=== PATIENT | male | born 1940 | race Caucasian/White ===

== ENCOUNTER 2016-09-06 08:26 | Inpatient (IN) | payer MEDICARE ==
[2016-09-03 11:57] LABS: BLOOD UREA NITROGEN 20 mg/dL (7-18)
[2016-09-03 12:01] LABS: ASPARTATE AMINO TRANSFERASE 22 U/L (15-37)
[~2016-09-06] VITALS: Ht 198.1 cm; Wt 141.0 kg
[~2016-09-06 08:26] MED LIST: APIX5TAB PO; BUPIVACAINE/PF-EPI 0.5% 1:200K ONE; CHOL20002 PO; DUTA0.5C PO; FINA1TAB16 PO; GABA300C10 PO; GLUC1500 PO; GLUC1CAP48 PO; HYDR-3240 PO; METO25TA35 PO; METR60GE TP; MINO100T2 PO; NAPR-874 PO; NAPR250T PO; NEOSPORIN OINT, 15GM ONE; ROSU10TA PO; ROSU20TA PO; TAMS-11 PO; THROMBIN 5,000 UNIT VIAL TP ONE; TRAM50TA2 PO; Will bring list DOP; ZOLP10TA PO
[2016-09-06 09:19] VITALS: BP 120/81
[2016-09-06] MEDS ORDERED: FENTANYL PF 250 MCG/5ML ONE (09:22)
[2016-09-06] MEDS ORDERED: KETAMINE 10 MG/ML, 20ML ONE (09:22)
[2016-09-06] MEDS ORDERED: LACTATED RINGERS 1,000 ML IV SCH (09:23)
[2016-09-06] MEDS ORDERED: MIDAZOLAM 1 MG/ML, 2ML ONE (09:23)
[2016-09-06] MEDS ORDERED: Tramadol PO (09:28)
[2016-09-06] MEDS ORDERED: REMIFENTANIL 2 MG ONE (10:01)
[2016-09-06] MEDS ORDERED: PHENYLEPHRINE 10 MG/ML ONE (11:37)
[2016-09-06] MEDS ORDERED: CEFAZOLIN 1,000 MG ONE (11:37)
[2016-09-06] MEDS ORDERED: ROCURONIUM 10 MG/ML ONE (11:37)
[2016-09-06] MEDS ORDERED: PROPOFOL 10 MG/ML, 50ML ONE ×2 (11:37)
[2016-09-06] MEDS ORDERED: ONDANSETRON 2MG/ML, 2ML ONE (11:37)
[2016-09-06] MEDS ORDERED: SUCCINYLCHOLINE 20 MG/ML, 10ML ONE (11:37)
[2016-09-06] MEDS ORDERED: DEXAMETHASONE 4 MG/ML, 1ML ONE (11:37)
[2016-09-06] MEDS ORDERED: SENNA/DOCUSATE TABLET PO PRN (12:00)
[2016-09-06] MEDS ORDERED: PHARMACY MAY ADJ FOR RENAL FX MC PRN (12:00)
[2016-09-06] MEDS ORDERED: DIPHENHYDRAMINE 50 MG/ML, 1ML IVPush PRN (12:00)
[2016-09-06] MEDS ORDERED: BISACODYL 10 MG SUPP PR PRN (12:00)
[2016-09-06] MEDS ORDERED: METRONIDAZOLE GEL 1%, 60GM TP SCH (12:00)
[2016-09-06] MEDS ORDERED: MAGNESIUM HYDROXIDE 8%, 30ML UDC PO PRN (12:00)
[2016-09-06] MEDS ORDERED: ONDANSETRON 2MG/ML, 2ML IVPush PRN (12:00)
[2016-09-06] MEDS: CEFAZOLIN PMX 1GM/50ML 50 ML IVPB SCH ×2 (12:00→19:58)
[2016-09-06] MEDS ORDERED: OXYcodone 5 MG/5 ML ORAL.SOL UDC PO PRN (13:30)
[2016-09-06] MEDS ORDERED: ACETAMINOPHEN 325 MG TABLET PO PRN (13:30)
[2016-09-06] MEDS ORDERED: PROMETHAZINE 25 MG/ML, 1ML IV PRN (13:30)
[2016-09-06] MEDS ORDERED: FENTANYL PF 100 MCG/2ML ONE ×2 (13:59→15:24)
[2016-09-06] MEDS ORDERED: HYDROmorphone 1 MG/ML, 1ML ONE ×2 (13:59→15:49)
[2016-09-06] MEDS: FENTANYL PF 100 MCG/2ML IV PRN ×4 (14:20→15:40)
[2016-09-06] MEDS: HYDROmorphone 1 MG/ML, 1ML IV PRN ×4 (14:30→15:10)
[2016-09-06] MEDS ORDERED: DIPHENHYDRAMINE 50 MG/ML, 1ML ONE (14:53)
[2016-09-06] MEDS ORDERED: ACETAMINOPHEN 650 MG/20.3 ML UDC ONE (15:17)
[2016-09-06] MEDS ORDERED: OXYcodone 5 MG/5 ML ORAL.SOL UDC ONE (15:17)
[2016-09-06 15:45] VITALS: BP 127/79
[2016-09-06] MEDS: morphine SULFATE 10 MG/ML, 1ML IVPush PRN ×2 (17:28→23:16)
[2016-09-06] MEDS: GABAPENTIN 300 MG CAPSULE PO SCH ×2 (17:28→21:00)
[2016-09-06] MEDS: D5%-0.9% NACL+KCL 20MEQ 1,000 ML IV SCH (17:28)
[2016-09-06] MEDS: METHOCARBAMOL 750 MG TABLET PO PRN (17:28)
[2016-09-06] MEDS: METOPROLOL TARTRATE 25 MG TABLET PO SCH (19:57)
[2016-09-06] MEDS: ATORVASTATIN 20 MG TABLET PO SCH (20:01)
[2016-09-06] MEDS: OXYcodone/APAP 5/325MG TABLET PO PRN (20:12)
[2016-09-06 21:00] VITALS: BP 134/88
[2016-09-07] MEDS: OXYcodone/APAP 5/325MG TABLET PO PRN ×6 (00:09→21:01)
[2016-09-07 00:10] VITALS: BP 132/82
[2016-09-07] MEDS: D5%-0.9% NACL+KCL 20MEQ 1,000 ML IV SCH ×3 (03:00→21:01)
[2016-09-07 04:07] VITALS: BP 115/68
[2016-09-07 07:41] VITALS: BP 119/68
[2016-09-07] MEDS: TAMSULOSIN 0.4 MG CAP.ER.24H PO SCH (08:00)
[2016-09-07] MEDS: METOPROLOL TARTRATE 25 MG TABLET PO SCH ×2 (08:00→21:01)
[2016-09-07] MEDS: MINOCYCLINE 100MG CAPSULE PO SCH (08:00)
[2016-09-07] MEDS: METHOCARBAMOL 750 MG TABLET PO PRN ×2 (08:00→16:22)
[2016-09-07] MEDS: CHOLECALCIFEROL 1,000 UNIT TABLET PO SCH (08:00)
[2016-09-07] MEDS: GABAPENTIN 300 MG CAPSULE PO SCH ×3 (08:00→21:01)
[2016-09-07] MEDS: FINASTERIDE 5 MG TABLET PO SCH (08:00)
[2016-09-07] MEDS ORDERED: FINASTERIDE 0.5 MG PO SCH (09:00)
[2016-09-07 14:01] VITALS: BP 126/77
[2016-09-07 19:34] VITALS: BP 125/78
[2016-09-07] MEDS: ATORVASTATIN 20 MG TABLET PO SCH (21:00)
[2016-09-08] MEDS: METHOCARBAMOL 750 MG TABLET PO PRN (01:41)
[2016-09-08] MEDS: OXYcodone/APAP 5/325MG TABLET PO PRN ×3 (01:41→09:06)
[2016-09-08 02:28] VITALS: BP 116/74
[2016-09-08 06:52] VITALS: BP 101/64
[2016-09-08] MEDS: CHOLECALCIFEROL 1,000 UNIT TABLET PO SCH (09:06)
[2016-09-08] MEDS: MINOCYCLINE 100MG CAPSULE PO SCH (09:07)
[2016-09-08] MEDS: FINASTERIDE 5 MG TABLET PO SCH (09:07)
[2016-09-08] MEDS: TAMSULOSIN 0.4 MG CAP.ER.24H PO SCH (09:07)
[2016-09-08] MEDS: METOPROLOL TARTRATE 25 MG TABLET PO SCH (09:07)
[2016-09-08] MEDS: GABAPENTIN 300 MG CAPSULE PO SCH (09:07)
== END 2016-09-08 10:34 | disposition home or self-care (01) | DRG 473 ==
LOC: ORIP 08:26 → 4NOR 16:39
PROVIDERS: ADMIT Orthopaedic Surgery Orthopaedic Surgery of the Spine; ATTEND Orthopaedic Surgery Orthopaedic Surgery of the Spine
PROC: 0RG2071 Fusion of 2 or more Cervical Vertebral Joints with Autologous Tissue Substitute, Posterior Approach, Posterior Column, Open Approach (ICD-10-PCS; principal; 2016-09-06 10:30)
DX: M48.02 Spinal stenosis, cervical region (principal); M50.31 Other cervical disc degeneration, high cervical region; I48.91 Unspecified atrial fibrillation; Z95.0 Presence of cardiac pacemaker; N40.0 Benign prostatic hyperplasia without lower urinary tract symptoms; E78.5 Hyperlipidemia, unspecified; G89.29 Other chronic pain; M43.12 Spondylolisthesis, cervical region
CPT/HCPCS: 36415; 71020; 72040; 80053; 81003; 85025; 86850; 86900; 93005; 95938; 95941; C1713; J0690; J1100; J1170; J2250; J2405; J2704; J3010; C1762; J0330; J2270; J2370; J3480; J7120

== ENCOUNTER → 2018-08-08 | Outpatient (CLI) | payer MEDICARE ==
[~2018-08-08] MED LIST changes: -BUPIVACAINE/PF-EPI 0.5% 1:200K ONE; -CHOL20002 PO; +CHOL200052 PO; -GLUC1500 PO; +GLUC15006 PO; -NAPR-874 PO; +NAPR250T6 PO; -NEOSPORIN OINT, 15GM ONE; -ROSU10TA PO; +ROSU10TA2 PO; -ROSU20TA PO; +ROSU20TA2 PO; -THROMBIN 5,000 UNIT VIAL TP ONE; +Tramadol PO
== END | disposition home or self-care (01) ==
LOC: CVU 09:11
PROVIDERS: ATTEND Physician Assistant Medical
DX: I08.3 Combined rheumatic disorders of mitral, aortic and tricuspid valves (principal); I10 Essential (primary) hypertension; I48.1 Persistent atrial fibrillation; Z95.0 Presence of cardiac pacemaker
CPT/HCPCS: 93306

== ENCOUNTER 2020-07-06 09:00 | Emergency (ER) | payer MEDICARE ==
[~2020-07-06] VITALS: Ht 198.1 cm; Wt 136.0 kg
[~2020-07-06 09:00] MED LIST changes: +HYDR-2214 PO; -HYDR-3240 PO; +NAPR-872 PO; -NAPR250T6 PO
[2020-07-06] MEDS ORDERED: NITROGLYCERIN SINGLE TAB 0.4 MG SL ONE (09:24)
--- NOTE | 2020-07-06 09:55 | NUR ---
PT PRESENTS TO ED WITH C/O EPIGASTRIC PAIN W/ ASSOCIATED N/V/D X3 DAYS. NO EMESIS OR DIARRHEA AT THIS TIME. PT A&O, RESPS EVEN AND UNLABORED, PT PACED WITH UNDERLYING AFIB RATE 60S ON OPEN WINDER. ALL MONITORS ARE IN PLACE, PIV PLACED, AWAITING LAB AND CXR RESULTS. AT BEDSIDE. CALL LIGHT IN REACH.
[2020-07-06 10:00] LABS: BASOPHILS % (AUTO) 0 % (0-1); EOSINOPHILS % (AUTO) 1 % (1-7); LYMPHOCYTES % (AUTO) 9 % (22-44); MEAN CORPUSCULAR HGB CONC 34.4 g/dL (33.2-36.2); MEAN PLATELET VOLUME 9.8 fL (7.4-10.4); MONOCYTES % (AUTO) 10 % (2-9); NEUTROPHILS % (AUTO) 80 % (42-75); PLATELET COUNT 163 x10^3/uL (130-400); RED CELL DISTRIBUTION WIDTH 13.4 % (9.4-14.8)
[2020-07-06] MEDS ORDERED: NITROGLYCERIN SINGLE TAB 0.4 MG SL PRN (10:00)
[2020-07-06 10:05] LABS: MD NO
[2020-07-06 10:12] LABS: ALANINE AMINOTRANSFERASE 31 U/L (12-78); ALBUMIN 3.7 g/dL (3.4-5.0); ANION GAP 5 mmol/L (5-15); CALCIUM 8.6 mg/dL (8.5-10.1); CHLORIDE 108 mmol/L (98-107); CREATININE 0.73 mg/dL (0.7-1.3)
[2020-07-06 10:16] LABS: ALKALINE PHOSPHATASE 106 U/L (45-117); BILIRUBIN,TOTAL 1.1 mg/dL (0.2-1.0); TOTAL PROTEIN 7.3 g/dL (6.4-8.2); TROPONIN I < 0.015 ng/mL (0.000-0.045)
--- NOTE | 2020-07-06 10:22 | NUR ---
preceptor RN note: nitro admin per emar, pt tolerated well. pt notes 3/10 epigastric pain prior to nitro with no changes s/p medical concierge. bp tolerating. MD and EDPA notified, no further nitro to be given per EDPA and . pt a&o, resps even and unlabored, to CT at this time.
[2020-07-06] MEDS ORDERED: SODIUM CHLORIDE FLUSH 10ML SYR IVF ONE (10:30)
[2020-07-06] MEDS ORDERED: OMNIPAQUE 350 MG/ML, 150 ML BOTTLE ONE (10:42)
--- NOTE | 2020-07-06 11:12 | NUR ---
PT BACK FROM CT. PT STATES EPIGASTRIC PAIN IS 4/10. A&O, RESPS EVEN AND UNLABORED. PT HAS PACED RHYTHM AT RATE OF 66 W/ NO ECTOPY. AWAITING CT RESULTS AND DISPO.
[2020-07-06] MEDS ORDERED: FAMOTIDINE 20 MG/2 ML IVPush ONE (11:30)
[2020-07-06] MEDS ORDERED: ONDANSETRON 2MG/ML, 2ML IVPush ONE (11:30)
[2020-07-06] MEDS ORDERED: ONDANSETRON 2MG/ML, 2ML ONE (11:33)
[2020-07-06] MEDS ORDERED: FAMOTIDINE 20 MG/2 ML ONE (11:33)
[2020-07-06] MEDS ORDERED: FURO40TA6 PO (11:49)
[2020-07-06] MEDS ORDERED: APIX5TAB PO (11:53)
[2020-07-06] MEDS ORDERED: MORPHINE SULFATE 4 MG/ML, 1ML IVPush PRN (12:00)
[2020-07-06] MEDS ORDERED: MORPHINE SULFATE 4 MG/ML, 1ML ONE (12:02)
--- NOTE | 2020-07-06 12:20 | NUR ---
PRECEPTOR RN NOTE: PT SLEEPING ON GURNEY, RESPS EVEN AND UNLABORED. OXYGEN APPLIED AT 2L/MIN VIA NC AFTER MORPHINE ADMIN FOR INITIAL DROP IN SPO2 TO 86%. AT BEDSIDE. PT TO BE DISCHARGED ONCE COMFORTABLE TO DO SO. AT BEDSIDE. ALL MONITORS IN PLACE.
[2020-07-06 12:45] VITALS: BP 134/68
--- NOTE | 2020-07-06 13:07 | NUR ---
discharge instructions reviewed, pt given prescription for bentyl and zofran, educated regarding dc meds. pt educated regarding follow up for gi, cardiology, and primary care. all imagin results reviewed with patient by providers. pt reports pain is tolerable, a&o, resps even and unlabored. pt educated not to drive today, to drive home. pt ambulatory to discharge desk with steady gait.
== END 2020-07-06 13:08 | disposition home or self-care (01) ==
LOC: ED 09:32
DX: I71.2 Thoracic aortic aneurysm, without rupture (principal); R10.13 Epigastric pain; R07.89 Other chest pain; R11.2 Nausea with vomiting, unspecified; I10 Essential (primary) hypertension; E78.5 Hyperlipidemia, unspecified
CPT/HCPCS: 36415; 71045; 71260; 74177; 80053; 83690; 84484; 85025; 93005; 96374; 96375; 99285; J2270; J2405; Q9967

== ENCOUNTER 2020-11-02 10:53 | Outpatient (CLI) | payer MEDICARE ==
[~2020-11-02 10:53] MED LIST changes: +FURO40TA6 PO
[2020-11-02] MEDS ORDERED: OMNIPAQUE 350 MG/ML, 150 ML BOTTLE ONE (11:38)
== END 2020-11-02 23:59 | disposition home or self-care (01) ==
LOC: CFH 10:53
PROVIDERS: ATTEND Internal Medicine Gastroenterology
DX: R16.1 Splenomegaly, not elsewhere classified (principal); N62 Hypertrophy of breast; I51.7 Cardiomegaly; M51.35 Other intervertebral disc degeneration, thoracolumbar region; R93.3 Abnormal findings on diagnostic imaging of other parts of digestive tract; Q79.1 Other congenital malformations of diaphragm
CPT/HCPCS: 74160; Q9967